=== PATIENT | male | born 1935 | race Caucasian/White ===

== ENCOUNTER 2016-09-17 13:49 | Emergency (ER) | payer MEDICARE, OTHER ==
[~2016-09-17] VITALS: Ht 175.3 cm; Wt 104.5 kg
[~2016-09-17 13:49] MED LIST: AMOX-366 PO; ASPI-275 PO; ATRV10T PO; GLIM4TAB PO; GLUC1CAP35 PO; METFORMIN 1000 MG; NIAC500SA PO; OMEP20TA86 PO; OXYC1TAB24 PO; Oxycodone/Acetaminophen PO; ZES5 PO
[2016-09-17 13:57] VITALS: BP 146/85; PULSE 75; RESP 15; O2SAT 93
[2016-09-17 14:57] LABS: BASOPHILS % (AUTO) 0.4 % (0-3); EOSINOPHILS % (AUTO) 1.8 % (0-5); MONOCYTES % (AUTO) 10.6 % (4-12); Mean Corpuscular Hemoglobin 33.4 pg (27.0-35.0); Mean Corpuscular Volume 95.2 fL (81-100); NEUTROPHILS % (AUTO) 70.6 % (40-74); Platelet Count 230 bil/L (150-400)
[2016-09-17 15:20] LABS: Magnesium 1.6 mg/dL (1.6-2.6)
[2016-09-17] MEDS ORDERED: oxyCODONE-Acetamin 5-325 mg Tablet PO ONE (15:30)
--- NOTE | 2016-09-17 15:30 | ED.REPORT ---
HPI-Abd Pain M 40 and Over Date of Service Sep 17, 2016 ED Provider: Lesia Galvan MD An 81 year old male with a history of diabetes mellitus, peripheral neuropathy , chronic hip and back pain sleep apnea, hypertension, and obesity presents to the ED complaining of intermittent left abdominal pain that began 4 days ago. Patient reports that the pain radiates from his left rib to his left flank. His last BM was this morning. Patient took Aleve and Tylenol with no relief. He denies fever, chills, productive cough, changes in BM or dysuria. He denies any recent injury. Nursing Notes Stated Complaint: LEFT ABD PAIN Chief Complaint: Male Abdominal Pain Nursing Notes Reviewed: Yes Allergies: Coded Allergies: amitriptyline (Verified Allergy, Intermediate, 11/13/13) citalopram (Verified Allergy, Intermediate, 11/13/13) gabapentin (Unverified Allergy, Intermediate, 11/13/13) vardenafil HCl (Verified Allergy, Unknown, HEADACHE, 08/12/12) Scheduled Amoxicillin/Clav K 875-125 mg (Augmentin 875-125 mg) 1 Each Tablet 1 EACH PO BID Aspirin (Ecotrin) 325 Mg Tablet. 325 MG PO DAILY Atorvastatin (Lipitor) 10 Mg Tab 10 MG PO DAILY Ciprofloxacin (Ciprofloxacin) 500 Mg Tablet 500 MG PO BID Glimepiride (Amaryl) 4 Mg Tablet 8 MG PO AM take two four mg tablets in the AM Glucosa Parra 2Kcl/Chondroitin Parra (Glucosamine & Chondroitin Cap) 1 Each Capsule 2 EACH PO DAILY Lisinopril-Expunged Drug, Do Not Renew! (Lisinopril-Expunged Drug, Do Not Renew! ) 5 Mg Tablet 5 MG PO DAILY Metronidazole (Metronidazole) 500 Mg Tablet 500 MG PO TID Niacin-Expunged Drug, Do Not Renew! (Niaspan-Expunged Drug, Do Not Renew!) 500 Mg Tablet.er 250 MG PO BID TAKE WITH FOOD Omeprazole-Expunged Drug, Do Not Renew! (Omeprazole-Expunged Drug, Do Not Renew! ) 20 Mg Tablet.dr 20 MG PO DAILY TAKE BEFORE MEAL Scheduled PRN ([Oxycodone/Acetaminophen]) 1 TAB TABLET 1-2 TAB PO q6h PRN PRN For Pain oxyCODONE-Acetaminophen 5-325 mg (oxyCODONE-Acetaminophen 5-325 mg) 1 Each Tablet 1-2 TAB PO Q6H PRN PRN For Pain Miscellaneous Medications ([metformin 1000mg]) oxyCODONE-Acetaminophen 5-325 mg (oxyCODONE-Acetaminophen 5-325 mg) 1 Each Tablet 1-2 EACH PO General Time Seen by MD: 15:02 Chief Complaint Abdominal pain (LLQ) Hx Obtained From: Patient Arrived By: Walk-in Sudden in Onset?: No Onset Occurred: 4 days ago Symptom Duration: Intermittent Progression since Onset: Intermittent Location: : Abdomen lower Quality: Painful Radiation: : Flank right Severity: Current: No pain currently Severity: Maximum: Moderate Associated with: Denies: Constipation, Diarrhea, Dysuria, Fever Pertinent Negative: Pt denies other symptoms Recent Healthcare: No recent doctor visit, No recent hospitalization Risk Factors )( AAA Risk Stratification Hypertension Risk factors reviewed Past Medical History Past Medical History 1. Diabetes mellitus 2. Peripheral neuropathy 3. Chronic hip pain 4. Chronic back pain 5. Sleep apnea 6. Hypertension 7. Obesity Past Surgical History Cholecystectomy Smoking History Unknown if Ever Smoker Social History Other Social History: Good social support, , Local resident Ambulatory Status Independent Review of Systems Constitutional: Denies: Chills, Fever Respiratory: Denies: Shortness of breath Cardiovascular: Reports: Chest pain (Rib Pain ) GI: Reports: Abdominal pain (LLQ), Denies: Constipation, Diarrhea, Nausea, Vomiting Male: Reports Flank pain (Left Flank Pain), Denies Dysuria Musculoskeletal: Reports: Back pain Complete sys rev & neg: except as marked. Physical Exam Initial Vital Signs Vital Signs (First) Date Time Temp Pulse Resp B/P Pulse Ox O2 Delivery O2 Flow Rate FiO2 09/17/16 13:57 36.7 75 15 146/85 93 Room Air Initial VS: Reviewed Head / Eyes: Atraumatic, Normocephalic, PERRL Extremities: Vascular intact, Neuro intact, No swelling, No tenderness Skin: Warm, Dry, No cyanosis Neurologic: Alert, Oriented, Nonfocal Psychiatric: Mood/affect normal, Behavior normal, Normal thought content General/Constitutional: Awake, Alert, No acute distress Respiratory / Chest: Atraumatic, Breath sounds NL, Breath sounds = bilat, No respiratory distress CHEST: reproducible pain to the left 12th rib at the mid axial line and radiates to left flank Cardiovascular: Heart rate NL, Regular rhythm, Heart sounds NL Abdomen: Atraumatic, Soft Tenderness/Guarding/Rebound: Positive: Tender LLQ... Back: Atraumatic, Non-tender Interpretation & Diagnostics Lab Results Interpretation Result Diagram: 09/17/16 1443 09/17/16 1443 Test 09/17/16 14:43 White Blood Count 6.8th/mm3 (3.8-10.1) Red Blood Count 4.34mil/mm3 (4.40-5.80) Hemoglobin 14.5g/dL (13.8-17.2) Hematocrit 41.3% (41.0-50.0) Mean Corpuscular Volume 95.2fL (81-100) Mean Corpuscular Hemoglobin 33.4pg (27.0-35.0) Mean Corpuscular Hemoglobin Concent 35.1% (32.0-37.0) Red Cell Distribution Width 12.8% (12.3-15.4) Platelet Count 230bil/L (150-400) Neutrophils (%) (Auto) 70.6% (40-74) Lymphocytes (%) (Auto) 16.3% (14-46) Monocytes (%) (Auto) 10.6% (4-12) Eosinophils (%) (Auto) 1.8% (0-5) Basophils (%) (Auto) 0.4% (0-3) Sodium Level 137mEq/L (134-144) Potassium Level 4.8mEq/L (3.5-5.2) Chloride Level 100mEq/L (97-108) Carbon Dioxide Level 20mmol/L (18-29) Blood Urea Nitrogen 16mg/dL (8-27) Creatinine 1.00mg/dL (0.76-1.27) Estimat Glomerular Filtration Rate 76mL/min (>59) Glucose Level 284mg/dL (60-99) Calcium Level 8.9mg/dL (8.5-10.1) Magnesium Level 1.6mg/dL (1.6-2.6) Total Bilirubin 0.5mg/dL (0.0-1.2) Aspartate Amino Transf (AST/SGOT) 48U/L (0-50) Alanine Aminotransferase (ALT/SGPT) 36U/L (0-44) Alkaline Phosphatase 58U/L (25-160) Total Protein 6.6g/dL (6.4-8.4) Albumin 4.3g/dL (3.4-5.0) Lipase 27U/L (13-60) Hold [place]oto Top Tube Received (Received) CT Abd / Pelvis Interpretation IMPRESSION: 1. Diverticulitis of the descending colon. No evidence of pericolonic abscess. 2. No evidence of urinary tract obstruction. 3. Peripherally calcified cyst within the superior pole right kidney is unchanged, consistent with benign etiology. Dictated by: Fahad Tran M.D. on 09/17/2016 at 16:00 Study type: Abdominal CT IV contrast, Abdom CT oral contrast Interpretation / Wet Read by: Interpret - Radiologist Re-Eval/Medical Decision Med Decision/Clinical Course Patient's white count is negative He is afebrile and is eating and drinking well. Patient will be discharged with oral medications. Time of Eval: 16:13 Patient Status: Condition improved Re-Evaluation/Progress Note: Patient is rechecked. He is informed of his lab results, CT results and diagnosis. All of the patient's questions are adressed. He understands and agrees with the treatment plan to discharge. Counseled Regarding: Diagnosis, Lab results, Need for follow-up, When/why to return to ED Discharge & Departure Primary Impression: Diverticulitis Diverticulitis site: unspecified part of intestinal tract Diverticulitis bleeding: without bleeding Diverticulitis complication: without perforation or abscess Qualified Code: K57.92 - Diverticulitis of intestine, part unspecified, without perforation or abscess without bleeding Disposition: Home Vital Signs - All Vital Signs Date Time Temp Pulse Resp B/P Pulse Ox O2 Delivery O2 Flow Rate FiO2 09/17/16 17:19 36.2 82 16 128/84 92 Room Air 09/17/16 13:57 36.7 75 15 146/85 93 Room Air )( All Prior VS Reviewed: Yes Condition: Improved Patient Instructions: Diverticulitis (ED), Diverticulitis Diet (ED) Additional Instructions: Thank you for trusting us with your care this afternoon. Your emergency department evaluation results including examination and CT scan are indicative of diverticulitis and I believe this is the likely cause of your symptoms. Please take Cipro 2 times per day and Flagyl 3 time per day. Please do not use any alcohol while on this medication. I recommend you eat with the antibiotics. Your symptoms should resolve in the few days. You can use 1-2 percoset every 6 hours for severe pain. If you are hurting more over the next days or still hurting enough to need pain medicine in 2-3 days, you need to be seen again. Schedule a follow up with your primary care physician in the next 2-3 days for a recheck. Please return to the emergency department immediately for any new or worsening conditions including any fever, chills, worsening abdominal pain, blood in your stool, nausea or vomiting. Referrals: Erendira Mayo MD (PCP) [place] Attestation Portions of this note were transcribed by Keyla Magallon. I, Dr. Galvan personally performed the history, physical exam and medical decision-making; I reviewed and confirmed the accuracy of the information in the transcribed note. Signed by: Krista Mcgrath, 09/17/16 [id number]. copies to: Erendira Mayo MD, Shawna L MD Sep 17, 2016 15:30 KEYLA MAGALLON Sep 17, 2016 15:53
--- NOTE | 2016-09-17 16:04 | DRSVH ---
PROCEDURE: CT KUB ([id number]) INDICATIONS: Left flank/lower rib pain TECHNIQUE: Noncontrast 5 mm thick sections acquired from the diaphragms to the symphysis. 5 mm thick coronal an d sagittal reformats were then performed. For radiation dose reduction, the following was used: aut omated exposure control, adjustment of mA and/or kV according to patient size. COMPARISON: [facility], CT, ABD/PELVIS W/CON (PNL), 11/13/2013, 3:08. FINDINGS: Image quality: Excellent. Lung bases: Lung bases are clear. Heart size is normal. Urinary system: Both kidneys are normal in size. No change in 12 mm diameter low-density focus withi n the superior pole right kidney, which demonstrates mural calcifications. No kidney stones. No hydr onephrosis or perinephric fat stranding. Both ureters appear non-dilated throughout their expected c ourses. Bladder wall thickness is normal; no calcified bladder stones. Other solid organs: Liver and spleen are normal in size. Gallbladder is surgically absent. Pancrea s is normal in contours. No adrenal nodules. Peritoneum and bowel: No free fluid or air. Appendix not seen. No evidence of appendicitis. Diverti culosis of the descending and sigmoid colon. Moderate thickening of the mid descending colon with mod erate surrounding fat stranding. Unenhanced bowel loops demonstrate otherwise normal wall thickness a nd caliber. No pericolonic abscess. Nodes and vessels: No retroperitoneal or mesenteric adenopathy by size criteria. Aorta and inferior vena cava are normal in caliber. Abdominal wall: No ventral hernias. Pelvis: No free pelvic fluid. No inguinal hernias or adenopathy. Bones: No suspicious bony lesions. No vertebral body compression fractures. IMPRESSION: 1. Diverticulitis of the descending colon. No evidence of pericolonic abscess. 2. No evidence of urinary tract obstruction. 3. Peripherally calcified cyst within the superior pole right kidney is unchanged, consistent with be nign etiology. Dictated by: Fahad Tran M.D. on 09/17/2016 at 16:00 Approved by: Fahad Tran M.D. on 09/17/2016 at 16:03
[2016-09-17] MEDS ORDERED: METR500T19 PO (16:51)
[2016-09-17] MEDS ORDERED: OXYC1TAB24 PO (16:51)
[2016-09-17] MEDS ORDERED: CIPR-198 PO (16:51)
[2016-09-17 17:19] VITALS: BP 128/84; PULSE 82; RESP 16; O2SAT 92
== END 2016-09-17 17:20 | disposition home or self-care (01) ==
LOC: SED 13:49
DX: K57.92 Diverticulitis of intestine, part unspecified, without perforation or abscess without bleeding (principal); E11.40 Type 2 diabetes mellitus with diabetic neuropathy, unspecified; I10 Essential (primary) hypertension; Z79.82 Long term (current) use of aspirin; Z90.49 Acquired absence of other specified parts of digestive tract; Z88.8 Allergy status to other drugs, medicaments and biological substances